=== PATIENT | male | born 1930 | race Hispanic/Latino ===

== ENCOUNTER 2016-10-18 00:34 | Emergency (ER) | payer MEDICARE, OTHER ==
--- NOTE | 2016-10-18 01:04 | ED PDOC ---
Arrival/HPI - General Time Seen by Provider: 10/18/16 00:57 Historian: Patient - History of Present Illness Narrative History of Present Illness (Text): 10/18/16 01:04 Nicolás Quinteros is an 86 year old male, whose past medical history includes CHF, hypertension, CAD, chronic kidney disease, hypothyroidism, prostate cancer , and COPD, who presents to the Emergency department complaining of left foot pain with associated swelling to the area. Patient states feel similar to Gout symptoms. Patient denies any fever, chills, chest pain, shortness of breath, nausea, vomiting, diarrhea, urinary symptoms, back pain, neck pain, headache, dizziness, or any other complaints. Symptom Onset: Gradual Symptom Course: Unchanged Activities at Onset: Rest, Light Context: Home Past Medical History - Provider Review Nursing Documentation Reviewed: Yes - Infectious Disease Hx of Infectious Diseases: None - Tetanus Immunization Tetanus Immunization: Unknown - Cardiac Hx Cardiac Disorders: Yes Hx Congestive Heart Failure: Yes Hx Hypertension: Yes - Pulmonary Hx Chronic Obstructive Pulmonary Disease (COPD): Yes - Neurological Hx Neurological Disorder: No - HEENT Hx HEENT Disorder: Yes Hx Cataracts: Yes - Renal Hx Renal Failure: Yes - Endocrine/Metabolic Hx Diabetes Mellitus Type 2: Yes - Hematological/Oncological Hx Blood Disorders: Yes Hx Cancer: Yes (thyroid, prostate) Other/Comment: had radiation for prostate ca on hormone shots every 3 months - Integumentary Hx Dermatological Disorder: No - Musculoskeletal/Rheumatological Hx Musculoskeletal Disorders: Yes Hx Falls: Yes (in the past) Hx Fractures: Yes (T12 VERTEBRAE,CPMPRESSEION FX,DJD) Hx Unsteady Gait: Yes (CANE) - Gastrointestinal Hx Gastrointestinal Disorders: No - Genitourinary/Gynecological Hx Reproductive Disorders: Yes - Psychiatric Hx Psychophysiologic Disorder: No (ETOH During SERVICE.QUIT) Hx Substance Use: No - Surgical History Hx Appendectomy: No Hx Cholecystectomy: No Hx Joint Replacement: Yes (bilateral knee) Other/Comment: thyroidectomy, tonsillectomy - Anesthesia Hx Anesthesia Reactions: No Hx Malignant Hyperthermia: No - Suicidal Assessment Feels Threatened In Home Enviroment: No Family/Social History - Physician Review Nursing Documentation Reviewed: Yes Family/Social History: No Known Family HX Smoking Status: Never Smoked Hx Alcohol Use: No Hx Substance Use: No Hx Substance Use Treatment: No Allergies/Home Meds Allergies/Adverse Reactions: Allergies oxycodone Allergy (Verified 03/09/16 15:55) NAUSEA Home Medications: Home Meds Medication Instructions Recorded Confirmed Aspirin [Aspirin Chewable] 81 mg PO DAILY 05/30/16 10/18/16 Roflumilast [Daliresp] 500 mcg PO HS 05/30/16 10/18/16 Albuterol/Ipratropium [Duoneb 3 3 ml IH QID 08/06/16 10/18/16 mg/0.5 mg (3 ml) UD] Potassium Chloride [K-Dur 20 mEq 20 meq PO DAILY 08/06/16 10/18/16 ER Tab] metOLazone [Zaroxolyn] 2.5 mg PO QOTHERDAY 08/06/16 10/18/16 Review of Systems - Physician Review All systems were reviewed & negative as marked: Yes - Review of Systems Constitutional: Normal. absent: Fevers Eyes: Normal ENT: Normal Respiratory: Normal. absent: SOB, Cough Cardiovascular: Normal. absent: Chest Pain Gastrointestinal: Normal. absent: Abdominal Pain, Diarrhea, Nausea, Vomiting Genitourinary Male: Normal. absent: Dysuria, Frequency, Hematuria, Urinary Output Changes Musculoskeletal: Other (+left foot pain). absent: Back Pain, Neck Pain Skin: Normal. absent: Rash Neurological: Normal. absent: Headache, Dizziness Endocrine: Normal Hemo/Lymphatic: Normal Psychiatric: Normal Physical Exam Vital Signs Reviewed: Yes Vital Signs Temp Pulse Resp BP Pulse Ox 10/18/16 03:20 79 18 137/71 100 10/18/16 01:15 98.8 F 84 18 142/78 99 Temperature: Afebrile Blood Pressure: Normal Pulse: Regular Respiratory Rate: Normal Appearance: Positive for: Well-Appearing, Non-Toxic, Comfortable Pain Distress: None Mental Status: Positive for: Alert and Oriented X 3 - Systems Exam Head: Present: Atraumatic, Normocephalic Pupils: Present: PERRL Extroacular Muscles: Present: EOMI Conjunctiva: Present: Normal Mouth: Present: Moist Mucous Membranes Neck: Present: Normal Range of Motion Respiratory/Chest: Present: Clear to Auscultation, Good Air Exchange. No: Respiratory Distress, Accessory Muscle Use Cardiovascular: Present: Regular Rate and Rhythm, Normal S1, S2. No: Murmurs Abdomen: Present: Normal Bowel Sounds. No: Tenderness, Distention, Peritoneal Signs Upper Extremity: Present: Normal Inspection. No: Cyanosis, Edema Lower Extremity: Present: Tenderness (Left foot tenderness), Swelling (Left foot swelling). No: Edema Neurological: Present: GCS=15, CN II-XII Intact, Speech Normal Skin: Present: Warm, Dry, Normal Color. No: Rashes Psychiatric: Present: Alert, Oriented x 3, Normal Insight, Normal Concentration Medical Decision Making ED Course and Treatment: 10/18/16 01:04 Impression: 86 year old male complaining of left foot pain tonight. Plan: -- Labs, uric acid -- XR Left foot -- Reassess and disposition Prior Visits: Notes and results from previous visits were reviewed. Progress Notes: 10/18/16 02:00 Reviewed radiology, XR Left Foot shows no evidence of acute fracture. 10/18/16 03:05 On re-evaluation, the patient feels better and is in no acute distress. I have discussed the results and plan with the patient, who expresses understanding. Patient in agreement with plan to discharged home. Patient is stable for discharge. Patient was instructed to follow up with physician/clinic in 1-2 days or return if symptoms worsen or new concerning symptoms arise. - Lab Interpretations Lab Results: 10/18/16 01:28 10/18/16 01:28 Lab Results 10/18/16 01:28: Sodium 133, Potassium 3.4 L, Chloride 90 L, Carbon Dioxide 32, Anion Gap 14, BUN 73 H, Creatinine 2.4 H, Est GFR ( Amer) 31, Est GFR ( Non-Af Amer) 26, Random Glucose 143 H, Uric Acid 8.9 H, Calcium 9.2, Total Bilirubin 0.9, AST 30, ALT 38, Alkaline Phosphatase 58, Total Protein 7.1, Albumin 3.6, Globulin 3.4, Albumin/Globulin Ratio 1.0 L 10/18/16 01:28: WBC 10.9 D, RBC 2.77 L, Hgb 8.9 L, Hct 26.4 L, MCV 95.3, MCH 32.1, MCHC 33.7, RDW 15.1 H, Plt Count 227, MPV 9.3, Gran % 78.6 H, Lymph % ( Auto) 6.2 L, Mcminn % (Auto) 13.5 H, Eos % (Auto) 1.5, Baso % (Auto) 0.2, Gran # 8.57 H, Lymph # 0.7 L, Mcminn # 1.5 H, Eos # 0.2, Baso # 0.02 I have reviewed the lab results: Yes - RAD Interpretation Radiology Orders: 10/18/16 01:14 FOOT LEFT 3 VIEWS ROUTINE [RAD] Stat Colon Therapist: ED Physician - Medication Orders Current Medication Orders: Discontinued Medications Colchicine (Colocrys) 0.6 mg PO STAT STA Stop: 10/18/16 02:40 Last Admin: 10/18/16 03:08 Dose: 0.6 mg - Scribe Statement The provider has reviewed the documentation as recorded by the Scribe Guillermina Mccarthy All medical record entries made by the Scribe were at my direction and personally dictated by me. I have reviewed the chart and agree that the record accurately reflects my personal performance of the history, physical exam, medical decision making, and the department course for this patient. I have also personally directed, reviewed, and agree with the discharge instructions and disposition. Disposition/Present on Arrival - Present on Arrival Any Indicators Present on Arrival: No History of DVT/PE: No History of Uncontrolled Diabetes: No Urinary Catheter: No History Surgical Site Infection Following: None - Disposition Have Diagnosis and Disposition been Completed?: Yes Diagnosis: Gout Disposition: HOME/ ROUTINE Disposition Time: 03:00 Condition: GOOD Discharge Instructions (ExitCare): Gout (ED) Prescriptions: Colchicine 0.6 mg PO BID #14 tablet Referrals: Sav Alvarez MD [Primary Care Provider] - Follow up with primary
[2016-10-18 01:10] VITALS: BMI 27.1
[2016-10-18 01:16] VITALS: RESP 18; TEMP 98.8
[2016-10-18 01:38] LABS: ADD MANUAL DIFF? NO
[2016-10-18 01:40] LABS: BASO # 0.02 K/mm3 (0.0-2.0); BASO % 0.2 % (0.0-3.0); EOS # 0.2 (0.0-0.7); EOS % 1.5 % (1.5-5.0); GRAN # 8.57 (1.4-6.5); GRAN % 78.6 % (50.0-68.0); HEMATOCRIT 26.4 % (42.0-52.0); LYMPH # 0.7 (1.2-3.4); LYMPH % 6.2 % (22.0-35.0); MEAN CELL VOLUME 95.3 fL (80.0-105.0); MEAN CORPUSCULAR HEMOGLOBIN 32.1 pg (25.0-35.0); MEAN CORPUSCULAR HGB CONC 33.7 g/dl (31.0-37.0); MEAN PLATELET VOLUME 9.3 fl (7.0-11.0); MONO # 1.5 (0.1-0.6); MONO % 13.5 % (1.0-6.0); PLATELET COUNT 227 10^3/uL (120.0-450.0); RED CELL DISTRIBUTION WIDTH 15.1 % (11.5-14.5); WHITE BLOOD COUNT 10.9 10^3/ul (4.5-11.0)
[2016-10-18 01:50] LABS: BILIRUBIN,TOTAL 0.9 mg/dL (0.2-1.3); CALCIUM 9.2 mg/dL (8.4-10.5); POTASSIUM 3.4 mmol/L (3.6-5.0); TOTAL PROTEIN 7.1 g/dL (5.8-8.3); URIC ACID 8.9 mg/dL (3.5-8.5)
[2016-10-18 04:48] VITALS: BP 137/71; PULSE 79; O2SAT 100
--- NOTE | 2016-10-18 08:10 | RAD ---
PROCEDURE: Left Foot Radiographs. HISTORY: pain COMPARISON: None. FINDINGS: BONES: Normal. No fracture. JOINTS: Normal. SOFT TISSUES: Normal. OTHER FINDINGS: None. IMPRESSION: Normal left foot radiographs.
== END 2016-10-18 03:20 | disposition home or self-care (01) ==
LOC: ED 00:34
DX: M10.9 Gout, unspecified (principal); I12.9 Hypertensive chronic kidney disease with stage 1 through stage 4 chronic kidney disease, or unspecified chronic kidney disease; N18.9 Chronic kidney disease, unspecified; E03.9 Hypothyroidism, unspecified